=== PATIENT | female | born 1945 | race Caucasian/White ===

== ENCOUNTER 2018-04-28 12:23 | Inpatient (IN) | payer MEDICARE, OTHER | END 2018-04-30 15:21 | disposition home health service (06) | LOC: PAS IN 12:23 → ORTHO 4S 14:36 → PACU 15:09 → ORTHO 4S 16:15 | PROC: 0SR90JA Replacement of Right Hip Joint with Synthetic Substitute, Uncemented, Open Approach (ICD-10-PCS; principal; 2018-04-28 13:31) | DX: M16.11 Unilateral primary osteoarthritis, right hip (principal); D62 Acute posthemorrhagic anemia ==